=== PATIENT | female | born 1970 | race African-American/Black ===

== ENCOUNTER 2017-07-08 14:42 | Emergency (ER) | payer OTHER ==
--- NOTE | 2017-07-08 15:10 | PDOC ---
History of Present Illness - History of Present Illness Initial Comments: 07/08/17 16:26 The patient is a 47 year old female, with a significant past medical history of hypertension and asthma, who presents to the emergency department with an allergic reaction today. Patient states that her lips started to swell and her throat began to tighten. She states that she has experienced this type of reaction before. Patient states that she has seen an fourth officer but the fourth officer she seen wasnt able to do a thorough enough to test for a wide array of allergens. Her fourth officer stated that she is allergic to spicy foods. Patient stated that after experiencing these symptoms she went to [facility] urgent care and they gave her an epipen in her left leg , prednisone, and benadryl and sent her to the ER. Patient states she ate half a blueberry muffin , a banana, some coffee, and excedrin for migraine. She denies recent fevers, chills, headache or dizziness. She denies recent nausea, vomit, diarrhea or constipation. She denies recent dysuria, frequency, urgency or hematuria. She denies recent chest pain or shortness of breath. Allergies: spicy foods Past surgical history: None reported. FMHx: diabetes Social history: Nonsmoker. Denies EtOH use and recreational drug use. Primary Care Physician: Pavan Herrera <Marline Martinez - Last Filed: 07/08/17 16:43> <Barbra Helton - Last Filed: 07/11/17 22:23> - General Stated Complaint: Allergic Reaction Time Seen by Provider: 07/08/17 15:10 Past History <Marline Martinez - Last Filed: 07/08/17 16:43> <Barbra Helton - Last Filed: 07/11/17 22:23> - Past Medical History Home Medications: Ambulatory Orders Diphenhydramine HCl [Benadryl -] 25 mg PO Q6H #28 capsule 07/08/17 Prednisone [Deltasone] 2 tab PO DAILY #10 tablet 07/08/17 Review of Systems - Review of Systems Comments:: 07/08/17 16:44 GENERAL/CONSTITUTIONAL: No fever or chills. No weakness. HEAD, EYES, EARS, NOSE AND THROAT: No change in vision. No ear pain or discharge. No sore throat. CARDIOVASCULAR: No chest pain or shortness of breath. RESPIRATORY: +tightness in throat. No cough, wheezing, or hemoptysis. GASTROINTESTINAL: No nausea, vomiting, diarrhea or constipation. GENITOURINARY: No dysuria, frequency, or change in urination. MUSCULOSKELETAL: No joint or muscle swelling or pain. No neck or back pain. SKIN: No rash NEUROLOGIC: No headache, vertigo, loss of consciousness, or change in strength/ sensation. ENDOCRINE: No increased thirst. No abnormal weight change. HEMATOLOGIC/LYMPHATIC: No anemia, easy bleeding, or history of blood clots. ALLERGIC/IMMUNOLOGIC: +swollen upper lip. <Marline Martinez - Last Filed: 07/08/17 16:43> *Physical Exam - Vital Signs Last Vital Signs Temp Pulse Resp BP Pulse Ox 90 20 144/90 98 07/08/17 14:59 07/08/17 14:59 07/08/17 14:59 07/08/17 14:59 - Physical Exam Comments: 07/08/17 16:43 GENERAL: Awake, alert, and fully oriented, in no acute distress HEAD: No signs of trauma EYES: PERRLA, EOMI, sclera anicteric, conjunctiva clear ENT: Auricles normal inspection, hearing grossly normal, nares patent, oropharynx clear without exudates. Moist mucosa NECK: Normal ROM, supple, no lymphadenopathy, JVD, or masses LUNGS: Breath sounds equal, clear to auscultation bilaterally. No wheezes, and no crackles HEART: Regular rate and rhythm, normal S1 and S2, no murmurs, rubs or gallops ABDOMEN: Soft, nontender, normoactive bowel sounds. No guarding, no rebound. No masses EXTREMITIES: Normal range of motion, no edema. No clubbing or cyanosis. No cords, erythema, or tenderness NEUROLOGICAL: Cranial nerves II through XII grossly intact. Normal speech, normal gait SKIN: +swollen upper lip. Warm, Dry, normal turgor, no rashes or lesions noted. <Marline Martinez - Last Filed: 07/08/17 16:43> Medical Decision Making - Medical Decision Making 07/11/17 22:20 Pt had an allergic reaction today. She drove herself to [facility]. They gave her epipen, steroids and benadryl and sent her to this ER for monitoring. Eval in the ER demonstrates that pt is stable. Her neck soft tissue denostrates excellent patency. Pt has some swelling of her mouth/lips. She has no swelling in the throat area. Pt will be discharged home with benadryl and prednisone. Pt likely was allergic to the banana that she ate today, as she has pepper allergies. We researched that pts with hot pepper allergies also have cross-reactive allergies with bananas and latex. Pt was advised about this also advised to keep a food diary. Follow with fourth officer. <Barbra Helton - Last Filed: 07/11/17 22:23> *DC/Admit/Observation/Transfer - Attestations Scribe Attestion: 07/08/17 16:44 Documentation prepared by Marline Martinez, acting as medical recruiter for Barbra Helton MD. <Marline Martinez - Last Filed: 07/08/17 16:43> - Discharge Dispostion Admit: No <Barbra Helton - Last Filed: 07/11/17 22:23> Diagnosis at time of Disposition: Allergic reaction, Food allergy - Discharge Dispostion Disposition: HOME Condition at time of disposition: Stable - Prescriptions Prescriptions: Diphenhydramine HCl [Benadryl -] 25 mg PO Q6H #28 capsule Prednisone [Deltasone] 2 tab PO DAILY #10 tablet - Referrals Referrals: Pavan Herrera [Primary Care Provider] - - Patient Instructions Printed Discharge Instructions: DI for Food Allergy Additional Instructions: Christen Ulloa MD Rusty Briseno MD, FAAAAI Reji Somers MD, KAROL, HEATHER Todd Plaza MD - Post Discharge Activity Forms/Work/School Notes: Back to Work
[2017-07-08 15:46] VITALS: BMI 35.0
[2017-07-08 17:24] VITALS: BP 150/90; PULSE 83; TEMP 97.7
== END 2017-07-08 17:24 | disposition home or self-care (01) ==
LOC: JER 14:42
DX: T78.1XXA Other adverse food reactions, not elsewhere classified, initial encounter (principal); X58.XXXA Exposure to other specified factors, initial encounter; I10 Essential (primary) hypertension; J45.909 Unspecified asthma, uncomplicated
CPT/HCPCS: 70360-TC; 99282-25

== ENCOUNTER 2018-07-07 09:05 | Emergency (ER) | payer OTHER ==
[2018-07-07 09:20] VITALS: BP 152/71; PULSE 89; TEMP 98.4; BMI 35.7
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
== END 2018-07-07 10:33 | disposition home or self-care (01) ==
LOC: JERFT 09:05
DX: R25.2 Cramp and spasm (principal); S16.1XXA Strain of muscle, fascia and tendon at neck level, initial encounter; X58.XXXA Exposure to other specified factors, initial encounter; Y93.89 Activity, other specified; Y92.9 Unspecified place or not applicable; I10 Essential (primary) hypertension; V43.62XA Car passenger injured in collision with other type car in traffic accident, initial encounter; Y92.410 Unspecified street and highway as the place of occurrence of the external cause
CPT/HCPCS: 99281-25